=== PATIENT | female | born 1980 | race Caucasian/White ===

== ENCOUNTER 2018-10-01 08:59 | Emergency (ER) | payer OTHER, MEDICARE ==
[~2018-10-01] VITALS: Ht 162.6 cm; Wt 149.7 kg
[2018-10-01] MEDS ORDERED: KETOROLAC 30 MG/ML VIAL. IV ONE (09:15)
--- NOTE | 2018-10-01 09:47 | RAD ---
EXAM: Chest, single view. HISTORY: Chest pain. COMPARISON: None. FINDINGS: A frontal view of the chest obtained. There is diffuse interstitial infiltrate. There is right hilar enlargement possibly due to enlarged central pulmonary vessels or hilar lymphadenopathy. There is a prominent cardiac silhouette, likely accentuated due to portable technique. No pleural effusion or pneumothorax is seen. IMPRESSION: 1. Diffuse interstitial infiltrate. 2. Right hilar enlargement likely due to prominent pulmonary vascular shadows or lymphadenopathy. Short-term radiographic or CT follow-up is recommended to exclude a hilar mass. Electronically signed by: Yue Tariq MD (10/01/2018 9:45 AM) [facility] [place]
[2018-10-01 09:54] LABS: BASO % 0 % (0-3); EOS % 0 % (0-3); HEMATOCRIT 36.6 % (36.0-47.0); HEMOGLOBIN 11.7 g/dL (12.0-15.5); LYMPH % 8 % (24-48); MEAN CORPUSCULAR HEMOGLOBIN 28 pg (25-35); MEAN CORPUSCULAR HGB CONC 32 g/dL (31-37); MEAN CORPUSCULAR VOLUME 87 fL (79-100); MONO # 0.6 x10^3/uL (0.0-1.1); MONO % 5 % (0-9); NEUT # 11.8 x10^3uL (1.8-7.7); NEUT % 87 % (31-73); PLATELET COUNT 234 x10^3/uL (140-400); RED BLOOD COUNT 4.21 x10^6/uL (3.50-5.40); RED CELL DISTRIBUTION WIDTH 14.6 % (11.5-14.5); WHITE BLOOD COUNT 13.5 x10^3/uL (4.0-11.0)
[2018-10-01 10:01] LABS: CALCIUM 8.5 mg/dL (8.5-10.1); CREATININE 0.7 mg/dL (0.6-1.0); GFR 94.7; POTASSIUM 4.1 mmol/L (3.5-5.1)
[2018-10-01 10:09] LABS: ALBUMIN 2.8 g/dL (3.4-5.0); ALBUMIN/GLOBULIN RATIO 0.8 (1.0-1.7); MAGNESIUM 1.9 mg/dL (1.8-2.4); TOTAL BILIRUBIN 0.3 mg/dL (0.2-1.0); TOTAL PROTEIN 6.5 g/dL (6.4-8.2)
--- NOTE | 2018-10-01 10:18 | PHYS DOC ---
Past Medical History Past Medical History: Anxiety, Bipolar, Fibromyalgia, Other Additional Past Medical Histor: PANIC ATTACKS Past Surgical History: Other Additional Past Surgical Histo: GASTRIC SLEEVE,CLEFT PALATE,RHINOPLASTY Additional Information: Denies smoking Alcohol Use: Occasionally Drug Use: Marijuana Adult General Chief Complaint Chief Complaint: CHEST PAIN HPI HPI Patient is a 37 year old female who brought in by EMS because of chest pain. Patient states she was driving remiss ago and developed substernal pressure chest pain with radiation to right side of jaw and shoulder as a constant pain and rated her pain 9/10. Patient complaining of shortness of breath and palpitation without nausea and dizziness. Patient states the pain getting worse with movement. She was treated with 324 mg of aspirin and nitroglycerin 1 by EMS with improvement of her pain to 4/10. Patient states she had history of another episode of chest pain with diagnosis of panic attacks. Patient denies history of hypertension, diabetes, dyslipidemia, smoking, PE and DVT. Patient had family history of coronary artery disease. Review of Systems Review of Systems Constitutional: Denies fever or chills [] Eyes: Denies change in visual acuity, redness, or eye pain [] HENT: Denies nasal congestion or sore throat [] Respiratory: Reports cough and shortness of breath Cardiovascular: No additional information not addressed in HPI [] GI: Denies abdominal pain, nausea, vomiting, bloody stools or diarrhea [] : Denies dysuria or hematuria [] Musculoskeletal: Denies back pain or joint pain [] Integument: Denies rash or skin lesions [] Neurologic: Denies headache, focal weakness or sensory changes [] Endocrine: Denies polyuria or polydipsia [] All other systems were reviewed and found to be within normal limits, except as documented in this note. Current Medications Current Medications Current Medications Medications (Trade) Dose Ordered Sig/Bonifacio Start Time Stop Time Status Last Admin Dose Admin Ceftriaxone Sodium (Rocephin) 1 gm 1X ONCE 10/01/18 12:30 10/01/18 12:31 DC 10/01/18 12:33 1 GM Info (CONTRAST GIVEN -- Rx MONITORING) 1 each PRN DAILY PRN 10/01/18 10:30 10/01/18 13:46 DC Iohexol (Omnipaque 350 Mg/ml) 100 ml 1X ONCE 10/01/18 10:30 10/01/18 10:31 DC 10/01/18 11:18 100 ML Ketorolac Tromethamine (Toradol 30mg Vial) 30 mg 1X ONCE 10/01/18 09:15 10/01/18 09:18 DC 10/01/18 09:47 30 MG Allergies Allergies Allergies Coded Allergies Type Severity Reaction Last Updated Verified lithium Allergy Intermediate 10/01/18 Yes zonisamide Allergy Intermediate 10/01/18 Yes Uncoded Allergies Type Severity Reaction Last Updated Verified ZONAGRAN Allergy Unknown 10/01/18 Physical Exam Physical Exam Constitutional: Well developed, well nourished, mild distress, non-toxic appearance, morbidly obese. [] HENT: Normocephalic, atraumatic. Eyes: PERRLA, EOMI, conjunctiva normal, no discharge. [] Neck: Normal range of motion, no tenderness, supple, no stridor. [] Cardiovascular:Heart rate regular rhythm, no murmur [] Lungs & Thorax: Bilateral breath sounds clear to auscultation , no reproducible chest pain[] Abdomen: Bowel sounds normal, soft, no tenderness, no masses, no pulsatile masses. [] Skin: Warm, dry, no erythema, no rash. [] Back: No tenderness, no CVA tenderness. [] Extremities: No tenderness, no cyanosis, no clubbing, ROM intact, no edema. [] Neurologic: Alert and oriented X 3, normal motor function, normal sensory function, no focal deficits noted. [] Psychologic: Affect anxious, judgement normal, mood normal. [] Current Patient Data Vital Signs Vital Signs Date Time Temp Pulse Resp B/P (MAP) Pulse Ox O2 Delivery O2 Flow Rate FiO2 10/01/18 13:15 84 17 112/58 (76) 96 Room Air 10/01/18 08:59 98.5 98.5 Lab Values Laboratory Tests Test 10/01/18 09:40 10/01/18 10:54 10/01/18 10:56 White Blood Count 13.5 x10^3/uL (4.0-11.0) H Red Blood Count 4.21 x10^6/uL (3.50-5.40) Hemoglobin 11.7 g/dL (12.0-15.5) L Hematocrit 36.6 % (36.0-47.0) Mean Corpuscular Volume 87 fL (79-100) Mean Corpuscular Hemoglobin 28 pg (25-35) Mean Corpuscular Hemoglobin Concent 32 g/dL (31-37) Red Cell Distribution Width 14.6 % (11.5-14.5) H Platelet Count 234 x10^3/uL (140-400) Neutrophils (%) (Auto) 87 % (31-73) H Lymphocytes (%) (Auto) 8 % (24-48) L Monocytes (%) (Auto) 5 % (0-9) Eosinophils (%) (Auto) 0 % (0-3) Basophils (%) (Auto) 0 % (0-3) Neutrophils # (Auto) 11.8 x10^3uL (1.8-7.7) H Lymphocytes # (Auto) 1.0 x10^3/uL (1.0-4.8) Monocytes # (Auto) 0.6 x10^3/uL (0.0-1.1) Eosinophils # (Auto) 0.0 x10^3/uL (0.0-0.7) Basophils # (Auto) 0.0 x10^3/uL (0.0-0.2) Segmented Neutrophils % 79 % (35-66) H Band Neutrophils % 7 % (0-9) Lymphocytes % 8 % (24-48) L Atypical Lymphocytes % (Manual) 1 % (0-0) H Monocytes % 4 % (0-10) Basophils % 1 % (0-3) Platelet Estimate Adequate (ADEQUATE) D-Dimer (Concha) 0.39 ug/mlFEU (0.00-0.50) Sodium Level 142 mmol/L (136-145) Potassium Level 4.1 mmol/L (3.5-5.1) Chloride Level 106 mmol/L (98-107) Carbon Dioxide Level 25 mmol/L (21-32) Anion Gap 11 (6-14) Blood Urea Nitrogen 7 mg/dL (7-20) Creatinine 0.7 mg/dL (0.6-1.0) Estimated GFR (Cockcroft-Gault) 94.7 BUN/Creatinine Ratio 10 (6-20) Glucose Level 128 mg/dL (70-99) H Calcium Level 8.5 mg/dL (8.5-10.1) Magnesium Level 1.9 mg/dL (1.8-2.4) Total Bilirubin 0.3 mg/dL (0.2-1.0) Aspartate Amino Transferase (AST) 27 U/L (15-37) Alanine Aminotransferase (ALT) 43 U/L (14-59) Alkaline Phosphatase 66 U/L (46-116) Creatine Kinase 82 U/L (26-192) Troponin I Quantitative < 0.017 ng/mL (0.000-0.055) HS-Xng-G-Type Natriuretic Peptide 133 pg/mL (0-124) H Total Protein 6.5 g/dL (6.4-8.2) Albumin 2.8 g/dL (3.4-5.0) L Albumin/Globulin Ratio 0.8 (1.0-1.7) L Lipase 111 U/L (73-393) Urine Opiates Screen Pos (NEG) Urine Methadone Screen Neg (NEG) Urine Barbiturates Neg (NEG) Urine Phencyclidine Screen Neg (NEG) Urine Amphetamine/Methamphetamine Neg (NEG) Urine Benzodiazepines Screen Neg (NEG) Urine Cocaine Screen Neg (NEG) Urine Cannabinoids Screen Neg (NEG) Urine Ethyl Alcohol Neg (NEG) POC Urine HCG, Qualitative Hcg negative (Negative) Laboratory Tests 10/01/18 09:40 Laboratory Tests 10/01/18 09:40 EKG EKG EKG interpreted by me. EKG at 0905 showed normal sinus rhythm at rate of 93, left russell axis, normal SD and QT intervals, poor R-wave progress anteroseptal leads, no acute ST and T-wave abnormalities. Radiology/Procedures Radiology/Procedures [facility] [address] [facility] [place] [address] IMAGING REPORT Signed PATIENT: BRADEN WELCH ACCOUNT: [id number] : 1980 LOCATION: ER AGE: 37 SEX: F EXAM STATUS: PRE ER ORD. PHYSICIAN: RAHEEL COLBERT MD REASON: chest pain PROCEDURE: PORTABLE CHEST 1V EXAM: Chest, single view. HISTORY: Chest pain. COMPARISON: None. FINDINGS: A frontal view of the chest obtained. There is diffuse interstitial infiltrate. There is right hilar enlargement possibly due to enlarged central pulmonary vessels or hilar lymphadenopathy. There is a prominent cardiac silhouette, likely accentuated due to portable technique. No pleural effusion or pneumothorax is seen. IMPRESSION: 1. Diffuse interstitial infiltrate. 2. Right hilar enlargement likely due to prominent pulmonary vascular shadows or lymphadenopathy. Short-term radiographic or CT follow-up is recommended to exclude a hilar mass. Electronically signed by: Yue Dempsey MD (10/01/2018 9:45 AM) [place] [id number] DICTATED and SIGNED BY: YUE DEMPSEY MD DATE: 10/01/18 0944 Course & Med Decision Making Course & Med Decision Making Pertinent Labs and Imaging studies reviewed. (See chart for details) Evolution of patient in ER showed 37-year-old male patient with history of anxiety brought in by EMS because of chest pain. Patient had unremarkable EKG. Patient had leukocytosis with abnormal chest x-ray for possible lung nodule or infiltration. CT of chest did not show PE lung nodule. CT of chest showed infiltration. Patient treated with Rocephin and Toradol and felt better. Patient did not have cardiac risk factor except for obesity. Plan discharge patient home with diagnose of pneumonia and noncardiac chest pain and instruction to follow up with her primary care physician in 3-5 days. Dragon Disclaimer Dragon Disclaimer This electronic medical record was generated, in whole or in part, using a voice recognition dictation system. Departure Departure Impression: Primary Impression: CAP (community acquired pneumonia) Additional Impressions: Non-cardiac chest pain Morbid obesity with BMI of 50.0-59.9, adult Panic attack Disposition: HOME, SELF-CARE (at 1300) Condition: IMPROVED Patient Instructions: Chest Wall Pain, Pneumonia, Adult Additional Instructions: Drink plenty of liquids Follow-up with your primary care physician in 3-5 days Return to ER if not getting better Scripts Benzonatate (TESSALON PERLE) 100 Mg Capsule 1 CAP PO TID for cough, #21 CAP Prov: RAHEEL COLBERT MD 10/01/18 Albuterol Sulfate (PROAIR HFA INHALER) 8.5 Gm Hfa.aer.ad 2 PUFF INH PRN Q6HRS PRN for SHORTNESS OF BREATH, #1 INHALER 0 Refills Prov: RAHEEL COLBERT MD 10/01/18 Azithromycin (ZITHROMAX) 250 Mg Tablet 1 PKG PO UD for infection, #1 PKG Prov: RAHEEL COLBERT MD 10/01/18 Problem Qualifiers Primary Impression: CAP (community acquired pneumonia) Laterality: unspecified laterality Qualified Codes: J18.9 - Pneumonia, unspecified organism RAHEEL COLBERT MD Oct 01, 2018 10:18
[2018-10-01 10:24] LABS: % ATYL 1 % (0-0); % BANDS 7 % (0-9); % BASOS 1 % (0-3); % LYMPHS 8 % (24-48); % MONOS 4 % (0-10); % SEGS 79 % (35-66); PLT ESTIMATE ADEQUATE (ADEQUATE)
[2018-10-01] MEDS ORDERED: IOHEXOL 350 MG/ML 100 ML VIAL. IV ONE (10:30)
[2018-10-01] MEDS ORDERED: CONTRAST GIVEN. MC PRN (10:30)
[2018-10-01 11:16] LABS: BARBITURATES NEG (NEG); BENZODIAZEPINES NEG (NEG); CANNABINOIDS NEG (NEG); COCAINE NEG (NEG); METHADONE NEG (NEG); OPIATES POS (NEG); PHENCYCLIDINE NEG (NEG)
[2018-10-01 11:19] LABS: AMPHETAMINE/METHAMPHETAMINE NEG (NEG)
--- NOTE | 2018-10-01 12:14 | RAD ---
EXAM: CT chest with contrast - pulmonary embolus protocol CLINICAL HISTORY: CHEST PAIN SOA ABNORMAL CXR OMNI 350 100ML. COMPARISON: None. TECHNIQUE: CT of the chest following the administration of intravenous contrast during the pulmonary arterial phase. Axial, coronal and sagittal reformatted images were generated including MIP images. ---PQRS compliance statement - One or more of the following individualized dose reduction techniques were utilized for this study: 1. Automated exposure control 2. Adjustment of the mA and/or kV according to patient size 3. Use of iterative reconstruction technique--- FINDINGS: CHEST: Diagnostic quality: Suboptimal. Pulmonary emboli: No pulmonary emboli to the level of the lobar branches. More peripheral vessels are not well assessed. Right heart strain: None Pulmonary arteries: Normal in caliber. The heart is mildly enlarged. Pericardial effusion. Prominent mediastinal and hilar lymph nodes are seen, not enlarged by size criteria. Calcified left hilar lymph node is seen. No axillary lymphadenopathy. Diffuse left left-sided nodular and groundglass airspace opacities are seen predominantly in the perihilar distribution these are suspicious for infectious/inflammatory process. The right lung is grossly clear. No pleural effusion or pneumothorax. Visualized Upper abdomen: Relative hypoattenuation of the liver may be seen with hepatic steatosis. Changes of prior gastric surgery are seen. Bones: Osseous structures are unremarkable. IMPRESSION: 1. Limited evaluation for pulmonary embolus given contrast bolus limitations. No pulmonary emboli to the level of the lobar branches. More peripheral vessels are not well assessed. 2. Left-sided nodular and groundglass airspace opacities diffusely likely infectious/inflammatory process such as pneumonia. Electronically signed by: Mahin Carrasco MD (10/01/2018 12:11 PM) [facility]
[2018-10-01] MEDS ORDERED: cefTRIAXone IV Push 1 GM VIAL. IVP ONE (12:30)
[2018-10-01] MEDS ORDERED: ALBU2.5V8 INH (13:03)
[2018-10-01] MEDS ORDERED: BENZ100C PO (13:03)
[2018-10-01] MEDS ORDERED: AZIT250T PO (13:03)
[2018-10-01 13:15] VITALS: BP 112/58
--- NOTE | 2018-10-01 16:09 | EKG ---
[facility] [address] [place] [address] Test Date: 2018-10-01 Test Time: 09:05:02 Pat Name: BRADEN WELCH Department: Room: Gender: F Rn Neonatal Icu: : 1980 Requested By: RAHEEL COLBERT Order Number: [id number] Reading MD: Jerod Gracia MD Measurements Intervals [place] Rate: 93 P: 24 GA: 154 QRS: -7 QRSD: 78 T: 24 QT: 334 QTc: 418 Interpretive Statements SINUS RHYTHM Electronically Signed On 10-02-2018 7:02:17 [employer]OUTE [employer] by Jerod Gracia MD
== END 2018-10-01 13:29 | disposition home or self-care (01) ==
LOC: ER 08:59
DX: J18.9 Pneumonia, unspecified organism (principal); R07.89 Other chest pain; F41.0 Panic disorder [episodic paroxysmal anxiety]; E66.01 Morbid (severe) obesity due to excess calories; Z68.43 Body mass index [BMI] 50.0-59.9, adult; Z88.8 Allergy status to other drugs, medicaments and biological substances; Z91.09 Other allergy status, other than to drugs and biological substances
CPT/HCPCS: 36415; 71045; 71275; 80053; 80307; 81025; 82550; 83690; 83735; 83880; 84484; 85007; 85025; 85379; 93005; 96374; 96375; 99284; J0696; J1885; Q9967